=== PATIENT | male | born 1985 | race Caucasian/White ===

== ENCOUNTER 2022-08-15 15:24 | Outpatient (REF) | payer BC, SELFPAY ==
[2022-08-15 16:14] LABS: Influenza A PCR NEGATIVE (Negative); Influenza B PCR NEGATIVE (Negative); Resp Syncy Virus RNA Qual PCR NEGATIVE (Negative); SARS COV2 PCR INHOUSE NEGATIVE (Negative)
== END 2022-08-15 15:25 | disposition home or self-care (01) ==
LOC: HO.LNP 15:24
PROVIDERS: Visit Provider Physician Assistant
DX: Z20.822 Contact with and (suspected) exposure to COVID-19 (principal); B34.9 Viral infection, unspecified
CPT/HCPCS: 0241U

== ENCOUNTER 2024-06-18 09:57 | Outpatient (AMB) | payer OTHER, SELFPAY ==
[2024-06-18 10:08] VITALS: BP 140/88; PULSE 90; TEMP 36.7; O2SAT 99; BMI 34.4
--- NOTE | 2024-06-18 10:08 | MHC.OFFWIV ---
Intake Vital Signs 06/18/24 10:08 Height 5 ft 8 in Weight 226 lb BMI 34.4 BP 140/88 H Blood Pressure Location Rt brachial Position Sitting Pulse 90 Pulse Source Pulse Oximeter Temp 98.0 F Temp Source Oral Pulse Oximetry (%) 99 Intake Visit Reasons: EP Ear blockage ?being on aircraft Patient Tobacco Use Status: Never used Tobacco Allergies No Known Allergies Allergy (Verified 06/18/24 10:10) Do you need a note to return to daycare/school/sports/work: Yes HPI HPI Comments History of Present Illness Details Patient presents with blocked ears Returned from vacation last night Bilateral, R>L No pain associated, 0/10 No URI symptoms Had a little during flight down to [place] but worse on way back PFSH Social History Patient Tobacco Use Status: Never used Tobacco Review of Systems Const Denies chills, Denies fever(s) and Denies headache(s) ENT Denies dizziness, Denies otalgia (+ blocked hearing R>L), Denies headache(s), Denies nasal discharge, Denies sinus pressure and Denies sore throat Resp Denies cough Neuro Denies dizziness and Denies headache(s) Physical Exam Vital Signs: Last Vital Signs Temp 98.0 F 06/18/24 10:08 Pulse 90 06/18/24 10:08 BP 140/88 H 06/18/24 10:08 Pulse Ox 99 06/18/24 10:08 BMI result Body Mass Index 34.4 General: Non-toxic, NAD. Speaking full sentences. Skin: Warm dry throughout Eye: EOMI HENT: R canal + cerumen impaction, unable to visualize TM. L canal clear and TM non-erythematous, non-bulging but + small amount clear fluid. No TM perforation or hemotympanum noted. No mastoid tenderness bilaterally. No auricular ttp Respiratory: No respiratory distress Cardiac: Normal rare Neurology: Alert. No aphasia or facial droop. Gait without abnormality Psych: Good mood and affect Office Procedures Cerumen Removal From which ear canal was the cerumen removed: right Removal: irrigation and otoscope w/curette Notes: patient tolerated procedure well, no complications and ear canal clear [id number] Irrigation/Lavage Assessment & Plan Assessment & Plan (1) Cerumen impaction: Code(s): H61.20 - Impacted cerumen, unspecified ear Qualifiers: Laterality: right Qualified Code(s): H61.21 - Impacted cerumen, right ear Plan: verbal consent obtained. L canal clear. R canal cleared with curette and then irrigation with warm saline. All cerumen removed and canal clear. Pt tolerated well without complications R TM without erythema but + effusion Pt will trial nasal steroid for fluid resolution Will call with onset pain or continual blocked hearing All questions answered prior to discharge and pt showed verbal understanding Medications: New ipratropium bromide administer into each nostril 2 sprays intranasal BID PRN 30 mL 0RF allergy symptoms Coding Level of Care Code Est Pt Level 3 (00556) Diagnoses Impacted cerumen of right ear H61.21 Laterality: right CPT Codes Office Procedure - CPT: 76807-Dqs Irrigation/Lavage ([id number])
--- OUTSIDE RECORDS SUMMARY | 2024-06-18 10:44 | XMS_ITS | Data Portability ---
Author Organization [facility] [address] Address [address] [place] [address] Assessment No assessment recorded. Plan of Treatment Reminders Order Date Submit Date Provider Last Modified By Organization Details Last Modified Time Details Appointments None recorded. Lab None recorded. Referral None recorded. Procedures None recorded. Surgeries None recorded. Imaging None recorded. Medication Orders Augmentin 875 mg-125 mg tablet 2022 023 [id number], [address] [place], [address], 3 15:17:17 Patient TargetsNo targets recorded. Patient Instructions Encounter Date Encounter Id Patient Instructions Last Modified By Organization Details Last Modified Time 06/01/2022 [id number] tooth decay: car e instructions [email or web address] Not available 06/01/2022 15:18:36 Reason for Referral None Reported. Problems No Known Problems Procedures Surgical History Date Name Laterality Status Provider Name and Address Organization Details Recorded Time suture of jejunum completed ALESIA AREVALO PA - [facility] 06/01/2022 14:39:44 inguinal hernioplasty completed ALESIA NGUYEN - [facility] 06/01/2022 14:40:00 Imaging Results None recorded. Procedure Notes None recorded. Medical Equipment None Reported. Allergies No known drug allergies Medications Name Sig Start Date Stop Date Status Note LastModified by Organization Details LastModified Time Augmentin 875 mg-125 mg tablet Take 1 tablet every 12 hours by oral route for 10 days. 023 active Not Available Not Available Not Avai lable Vitals Date Recorded Body height Body mass index (BMI) Body weight Pain severity - 0-10 verbal numeric rating [Score] - Reported Heart rate Respiratory rate Oxygen saturation Oxygen saturation in Arterial blood by Pulse oximetry Body temperature Systolic blood pressure Diastolic blood pressure Provider Name and Address Organization Details Last Updated DateTime 172.72 cm 34.8 kg/m2 326806. 65 g 8 70 /min 16 /min 98 % 98 % 97.7 [degF] 155 mm[Hg] 100 mm[Hg] ALESIA TAEY PA - [facility] 14:41:33 Social History Question Answer Notes LastModified by Organizat ion Details LastModified Time Tobacco Smoking Status Former Smoker ALESIA IRINA duckworth PA - [facility] 06/01/2022 14:40:43 What Is Your Level Of Alcohol Consumption? Occasional [email or web address] Information not available 06/01/2022 Which Illicit Or Recreational Drugs Have You Used? Marijuana [email or web address] Information not available 06/01/2022 When Did You Quit Smoking? 6-10yearssince lastcigarette [email or web address] Information not available 06/01/2022 Do You Use Any Illicit Or Recreational Drugs? Yes [email or web address] Information not available 06/01/2022 Have You Recently Traveled Abroad? No [email or web address] Information not available 06/01/2022 Do You Or Have You Ever Used Any Other Forms Of Tobacco Or Nicotine? No [email or web address] Information not available 06/01/2022 Sex: Unknown Functional Status None recorded. Mental Status None recorded. Family History Relationship Description Onset Age of this Age Resolved Age Notes LastModified by Organization Details LastModified Time Father No current problems or disability [email or web address] Not available 06/01 14:40:13 Mother No current problems or disability Not available 06/01 14:40:13 Medical History No medical history recorded. Past Encounters Encounter ID Performer Location Encounter Start Date Encounter Closed Date Diagnosis/Indication Diagnosis SNOMED-CT Code Diagnosis ICD10 Code Diagnosis Note [id number] [address] [address] 09/28/2017 08:42:35 09/28/2017 09:37:59 [id number] [address] [email or web address] [address] 05/29/2019 09:40:43 05/29/2019 10:26:25 [id number] [address] [place] [address] 04/12/2015 18:19:04 04/12/2015 19:58:50 [id number] Lincoln Kevin MD [address] [place] [address] 06/01/2022 14:05:33 06/01/2022 15:19:20 Dental abscess 815121141 K04.7 Health Concerns Section Related Observation LastModified by Organization Detai ls LastModified Time None Recorded Concern Status LastModified by Organization Details LastModified Time None Recorded Advance Directives Directive None Recorded Payers Encounter Date Sequence Insurance Name Policy Number Policy Meza Covered Member ID Meza Member ID Guarantor Name 05/29/2019 1 [employer] [id number] Oh Otero [id number] Oh Otero 06/01/2022 1 [place] ([facility]) [id number] Oh Otero [id number] Oh Otero Notes Date Note Type Note Provider Name and Address Organization Details Recorded Time 06/01/2022 text/html Dental ProblemReported bypatient.Locationlow er; first molar Symptomspain;gingival swelling;sensitivity Treatment:OTC medications Lincoln Kevin MD [address] [place] [address] [place], [address], [place] - [facility] 06/01/2022 15:21:17
== END 2024-06-18 10:41 | disposition home or self-care (01) ==
PROVIDERS: Visit Provider Physician Assistant
DX: H61.21 Impacted cerumen, right ear (principal)

== ENCOUNTER → 2024-06-18 09:57 | Outpatient (BNVA) | payer OTHER, SELFPAY | DX: H61.21 Impacted cerumen, right ear (principal) | CPT/HCPCS: 69210 ==